=== PATIENT | female | born 1950 | race Two or more races ===

== ENCOUNTER 2019-12-29 19:26 | Emergency (ER) | payer OTHER ==
[2019-12-29] MEDS ORDERED: Lidocaine PATCH 5%* 1 PATCH TRANSDERM ONE (19:58)
--- NOTE | 2019-12-29 19:58 | ED ---
Adult Trauma - HPI Summary HPI Summary: Patient is a 69 y/o F w/ no PMHx who presents to [facility] with chief complaint of right-sided anterior rib pain. Patient states that she was doing stretches at home on 12/27/19. Patient had pressed her legs against her torso and had asked her to push. While pushing, the patient heard a cracking noise at her anterior right rib area. 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 Patient also notes that she went outside today, 12/29/19, to get her mail when she slipped, fell, and landed on her buttocks. Shes notes very minimal pain to her left buttocks area. Patient came to ED with her torso wrapped in cloth for comfort. Deep breaths are noted to aggravate her anterior right rib pain. She denies daily medications. Patient has not taken any medications [facility]. Home medications and allergies are reviewed. - History of Current Complaint Chief Complaint: EDChestWallPain Stated Complaint: RIB PAIN PER PT Hx Obtained From: Patient Mechanism of Injury: Fall Ambulatory at the Scene: Yes Loss of Consciousness: no loss of consciousness Restraints: None Onset/Duration: Still Present Onset of Pain: Prior to Arrival Current Severity: Moderate Pain Intensity: 6 Pain Scale Used: 0-10 Numeric Location: Chest - right anterior rib area, Other - left buttocks Aggravating Factor(s): Deep Breaths Alleviating Factor(s): Other - wrapping torso in cloth Associated Signs & Symptoms: Positive: Negative - Allergy/Home Medications Allergies/Adverse Reactions: Allergies Allergy/AdvReac Type Severity Reaction Status Date / Time No Known Allergies Allergy Verified 12/29/19 19:32 Home Medications: Home Medications Acetaminophen TAB* [Tylenol TAB*] 650 mg PO Q6H PRN 12/29/19 [History Confirmed 12/29/19] Lidocaine PATCH 5%* [Lidoderm 5% Patch*] 1 patch TRANSDERM DAILY #7 patch [Rx] PMH/Surg Hx/FS Hx/Imm Hx Endocrine/Hematology History: Denies: Hx Diabetes Cardiovascular History: Denies: Hx Hypertension Infectious Disease History: No Infectious Disease History: Denies: Traveled Outside the [place] in Last 30 Days - Family History Known Family History: Negative: Diabetes - Social History Alcohol Use: None Substance Use Type: Reports: None Smoking Status (MU): Never Smoked Tobacco Review of Systems Negative: Fever - no fever as vitals show temp of 100.3 F Positive: Other - fall, right anterior rib pain, left buttocks pain All Other Systems Reviewed And Are Negative: Yes Physical Exam - Summary Physical Exam Summary: Constitutional: Well-developed, Well-nourished, Alert. (-) Distressed Skin: Warm, Dry HENT: Normocephalic; Atraumatic Eyes: Conjunctiva normal Neck: Musculoskeletal ROM normal neck. (-) JVD, (-) Stridor, (-) Tracheal deviation Cardio: Rhythm regular, rate normal, Heart sounds normal; Intact distal pulses; The pedal pulses are 2+ and symmetric. Radial pulses are 2+ and symmetric. Pulmonary/Chest wall: Patients lungs are expanding symmetrically, no distress with breathing noted. Lungs are clear to auscultation. Effort normal. (-) Respiratory distress, (-) Wheezes, (-) Rales Abd: Soft, (-) tenderness, (-) Distension, (-) Guarding, (-) Rebound Musculoskeletal: There is no ecchymosis along her chest wall. There is point tenderness along the anterior axillary line at the lower border of the costal margin. No obvious signs for trauma, no deformity, no crepitus. Patient also has a superficial abrasion at the MCP joint of the fourth digit of the left hand. Patient has FROM of this digit. There is no ecchymosis and no contusion noted to her left buttocks area. Neuro: Alert, Oriented x3 Psych: Mood and affect Normal Triage Information Reviewed: Yes Vital Signs On Initial Exam: Initial Vitals Temp Pulse Resp BP Pulse Ox 100.3 F 95 15 152/79 96 12/29/19 19:27 12/29/19 19:27 12/29/19 19:27 12/29/19 19:27 12/29/19 19:27 Vital Signs Reviewed: Yes Procedures - Sedation Patient Received Moderate/Deep Sedation with Procedure: No Diagnostics - Vital Signs Vital Signs Temp Pulse Resp BP Pulse Ox 12/29/19 19:27 100.3 F 95 15 152/79 96 - Laboratory Lab Statement: Any lab studies that have been ordered have been reviewed, and results considered in the medical decision making process. Adult Trauma Course/Dx - Course Course Of Treatment: Patient is a 69 y/o F w/ no PMHx who presents to [facility] with chief complaint of right-sided anterior rib pain. Patient states that she was doing stretches at home on 12/27/19. Patient had pressed her legs against her torso and had asked her to push. While pushing, the patient heard a cracking noise at her anterior right rib area. Patient also notes that she went outside today, 12/29/19, to get her mail when she slipped, fell, and landed on her buttocks. Shes notes very minimal pain to her left buttocks area. Deep breaths are noted to aggravate her anterior right rib pain. On physical exam, there is no ecchymosis along her chest wall. There is point tenderness along the anterior axillary line at the lower border of the costal margin. No obvious signs for trauma, no deformity, no crepitus, unlikely flailed segment. Patient s lungs are expanding symmetrically, no distress with breathing noted. Lungs are clear to auscultation. Patient also has a superficial abrasion at the MCP joint of the fourth digit of the left hand. Patient has FROM of this digit. There is no ecchymosis and no contusion noted to her left buttocks area. Patient declines CXR. She is agreeable with treating her pain with a lidoderm patch. Lidoderm 5% patch was applied in ED and she was given a prescription for Lidoderm patch. Patient to use incentive spirometer as well. She was discharged to home and will followup with PCP as needed. - Diagnoses Provider Diagnoses: Chest wall contusion Discharge ED - Sign-Out/Discharge Documenting (check all that apply): Patient Departure - discharge - Discharge Plan Condition: Stable Disposition: HOME Prescriptions: Lidocaine PATCH 5%* [Lidoderm 5% Patch*] 1 patch TRANSDERM DAILY #7 patch Patient Education Materials: Chest Wall Pain (ED) Referrals: [facility] [Outside] - If Needed Additional Instructions: PLEASE RETURN TO ED FOR ANY NEW OR CONCERNING SYMPTOMS. PLEASE FOLLOWUP WITH YOUR PRIMARY CARE PHYSICIAN NEEDED. - Billing Disposition and Condition Condition: STABLE Disposition: Home - Attestation Statements Document Initiated by Scribe: Yes Documenting Scribe: BRAD SUTTON Provider For Whom Bonnieibe is Documenting (Include Credential): NARAYAN DUARTE MD Scribe Attestation: BRAD Romeo, scribed for NARAYAN DUARTE MD on 12/30/19 at [id number]. Scribe Documentation Reviewed: Yes Provider Attestation: The documentation as recorded by the scribeBRAD accurately reflects the service I personally performed and the decisions made by me, NARAYAN DUARTE MD Status of Scribe Document: Viewed
[2019-12-29 20:18] VITALS: BP 128/84
[2019-12-30] MEDS ORDERED: Lidocaine Patch REMOVE* 1 NOTE MISC PATCH OFF SCH (08:00)
== END 2019-12-29 20:16 | disposition home or self-care (01) ==
LOC: ED 19:26
DX: S20.211A Contusion of right front wall of thorax, initial encounter (principal); X50.9XXA Other and unspecified overexertion or strenuous movements or postures, initial encounter; Y92.009 Unspecified place in unspecified non-institutional (private) residence as the place of occurrence of the external cause
CPT/HCPCS: 99282; A9270-GY